=== PATIENT | female | born 1955 | race Caucasian/White ===

== ENCOUNTER → 2017-03-29 | Outpatient (CLI) | payer BC, SELFPAY ==
--- NOTE | 2017-03-30 03:02 | RAD ---
Procedure: XR PELVIS 1-2 VIEWS Exam Date: 03/29/2017 Ordering Provider: SARAH KEN Clinical Indication: HIP pain Comparison: None FINDINGS: There is no fracture or dislocation. Articular surface of each hip is preserved. The sacroiliac joints have a normal appearance bilaterally. The pubic symphysis is normal. There are no lytic or sclerotic lesions. There are no suspicious calcifications. Impression: 1. Negative exam of the pelvis and each hip. Electronically signed by: Alden Savage MD 03/30/2017 3:02 AM CDT
--- NOTE | 2017-03-30 03:05 | RAD ---
Procedure: XR HIP 2 OR MORE VIEWS Exam Date: 03/29/2017 Ordering Provider: SARAH KEN Clinical Indication: HIP pain Comparison: None FINDINGS: There is no fracture or dislocation. Articular surface of the right hip is preserved. Visualized portions of the right hemipelvis are normal. There is no lytic or sclerotic lesion. No suspicious calcifications. Impression: 1. Negative exam of the right hip. Electronically signed by: Alden Savage MD 03/30/2017 3:04 AM CDT
== END | disposition home or self-care (01) ==
LOC: LAB.O 13:37
PROVIDERS: ATTEND Orthopaedic Surgery
DX: M25.551 Pain in right hip (principal)

== ENCOUNTER → 2017-04-01 | Outpatient (CLI) | payer BC ==
--- NOTE | 2017-04-01 16:22 | MAM ---
History: Well woman exam. Date of exam: 04/01/2017 Services provided: Bilateral full field digital screening mammography. CAD, the images were reviewed with R2 computer aided detection. FINDINGS: Glandular tissue is scattered glandular contour with increased mammographic density. Comparison with 2012 exam. No dominant mass, architectural distortion or clustered microcalcification. IMPRESSION: Benign exam Recommendation: Routine annual mammography BIRAD CATEGORY: 2 BENIGN Electronically signed by: Vijaya Trinidad MD 04/01/2017 4:22 PM CDT Workstation: [id number]
== END | disposition home or self-care (01) ==
LOC: MAMMO 07:35
PROVIDERS: ATTEND Family Medicine
DX: Z12.31 Encounter for screening mammogram for malignant neoplasm of breast (principal)

== ENCOUNTER → 2018-11-24 | Outpatient (CLI) | payer BC ==
--- NOTE | 2018-11-24 09:56 | CT ---
EXAM DESCRIPTION: Abdomen/Pelvis w/wo Contrast: Computed Tomography. CLINICAL HISTORY: GROSS HEMATURIA COMPARISON: None. TECHNIQUE: Spiral-axial scans at 5 x 5 mm intervals through the abdomen and pelvis before and after standard dose nonionic IV contrast. No oral contrast. Coronal and sagittal 2.0 mm reconstructions. 5 mm Delayed helical-axial scans, liver through the pubic symphysis. No adverse reactions. Total Exam DLP 1883.19 mGy - cm. This exam was performed according to our departmental CT dose-optimization program which includes automated exposure control, adjustment of the mA and/or kV according to patient size and/or use of iterative reconstruction technique; to reduce radiation dose to as low as reasonably achievable (ALARA). FINDINGS: Kidneys and Ureters: In the upper right kidney there is a lobulated mass with partially circumscribed margins involving the collecting system of the mid kidney and extending superiorly along the medial border and mass effect on the renal pelvis, displacing it posteriorly. Collecting system also displaced posterior to the mass.. Inhomogeneous enhancement. No calcification with dimensions 3.3 x 3.6 cm in axial plane and 3.4 cm craniocaudal. No fatty stranding or perinephric fluid. No hydronephrosis or radiodense stones in the kidney. Entire right ureter contains IV contrast and normal caliber. No filling defects in the right renal vein. Normal size left kidney with no definite mass, stones, or abnormal enhancement or perinephric fluid or hydronephrosis. Contrast in the proximal two thirds of the left ureter normal caliber.. Pelvic Organs: No free fluid. Vaginal cuff negative. Ovaries not well seen. Small calcifications. Lung bases and pleura: Negative. Liver, Stomach, Spleen, Adrenal Glands: Small nonenhancing region on the lateral tip of the lateral segment of the left hepatic lobe seen on the immediate postcontrast images not as well seen on the delayed contrast images. Approximately 1.5 cm greatest diameter. Hounsfield density +61 to +73. Liver otherwise unremarkable. Stomach duodenum and remaining solid organs are negative. Pancreas, Gallbladder, Ducts: Gallbladder visualized. No ascites. Pancreas unremarkable. Duct upper normal limits in caliber. Mesentery: No free air or fluid. No fatty stranding or fascial thickening. Aorta: Minimal tortuosity. Small calcification at the ostia of the left renal artery. Small lymph nodes between the aorta and IVC and lateral left aorta. Small Bowel: Intermittent gas and fluid with minimal distention distally. No significant air-fluid levels. Terminal Ileum/Cecum: Minimal distention with fluid in the TI. Mild distention of the cecum by fecal matter. Normal caliber of the appendix. Normal density of the surrounding fat. Colon: Moderate amount of fecal material throughout the colon, predominantly ascending, transverse, and descending. No air-fluid levels. Spine and Bony Pelvis: Spondylosis L5-S1 predominantly midline into the left of midline. Subchondral cyst anterior right acetabular facet. Minimal lumbar levoscoliosis. Abdominal Wall/Back Soft Tissues: Negative. IMPRESSION: 1. 4 x 3 cm mass mid and upper right kidney with inhomogeneous enhancement, and mass effect on the collecting system and right renal pelvis. Most likely renal cell carcinoma. No hydronephrosis perinephric fluid, fatty stranding or satellite lesions around the kidney. No filling defect in the right renal vein. No enlarged perirenal or periaortic veins. 2. Focal area of decreased contrast enhancement the lateral tip of the lateral segment left hepatic lobe. This can be normal finding, or hemangioma. Metastatic lesion should also be consideration. Included lung bases are unremarkable. 3. Moderate amount of fecal material throughout the colon. Slight distention of the terminal ileum by fluid. No mass identified in the peritoneum or retroperitoneum with no ascites or fluid in the cul-de-sac. Urinary bladder wall appears uniform but only minimal contrast in the bladder. CRITICAL COMMUNICATION: The critical value was discussed directly by phone with Dr. Earnest Magallanes at approximately 950 hours, on November 24, 2018. Electronically signed by: Viktor Roach MD 11/24/2018 9:54 AM BAG CHECKER
== END ==
LOC: CT 07:52
PROVIDERS: ATTEND Family Medicine
DX: R31.0 Gross hematuria (principal); N28.89 Other specified disorders of kidney and ureter

== ENCOUNTER → 2018-11-25 | Outpatient (CLI) | payer BC ==
--- NOTE | 2018-11-25 18:31 | CT ---
EXAM DESCRIPTION: Chest w/Contrast : Computed Tomography. CLINICAL HISTORY: 63 years Female RENAL MASS right kidney. COMPARISON: CT scan of abdomen and pelvis without and with IV contrast, 11/24/2018. TECHNIQUE: Spiral-axial scans at 5 x 5 mm intervals through the lungs and thorax without IV contrast. 2.5 x 5 mm lung algorithm axial reconstructions. Coronal and sagittal 2.0 Mm reconstructions. No adverse reactions. Total Exam DLP: 265.84 mGy-cm. This exam was performed according to our departmental dose-optimization program which includes automated exposure control, adjustment of the mA and/or kV according to patient size and/or use of iterative reconstruction technique; to reduce radiation dose to as low as reasonably achievable (ALARA). Nodule measurements under 10 mm are given as mean value of 3 axes diameters. FINDINGS: Lungs and large airways: Small bilateral blebs more prevalent in the upper lung henriquez than the lower lung henriquez. No abnormal nodules or masses. No focal infiltrates. Pleural spaces: No effusion calcification or pneumothorax. Mediastinum and Stacey: No enlarged soft tissue masses or abnormal lymph nodes. Great vessels and Heart: Minimal atherosclerotic calcification in the aortic arch. Soft tissues of neck base, axillae, and chest wall: Small axillary lymph nodes. Symmetric appearance of the thyroid gland. Otherwise negative. Upper abdomen: See report from CT scan abdomen and pelvis on 11/24/2018. Osseous structures: Early spondylosis in the thoracic spine. IMPRESSION: Minimal emphysematous changes in the upper lung henriquez bilaterally. No abnormal nodules masses or focal infiltrates. No pleural effusion or pneumothorax. No abnormal appearing lymph nodes in the mediastinum and stacey or chest wall. No soft tissue masses. No blastic or lytic bone lesions. Electronically signed by: Viktor Roach MD 11/25/2018 6:30 PM SERVICE ORDER DISPATCHER CHIEF
== END ==
LOC: CT 10:07
PROVIDERS: ATTEND Family Medicine
DX: C64.9 Malignant neoplasm of unspecified kidney, except renal pelvis (principal)

== ENCOUNTER → 2019-04-17 | Outpatient (CLI) | payer BC ==
--- NOTE | 2019-04-17 15:12 | RAD ---
EXAM DESCRIPTION: Chest,2 Views CLINICAL HISTORY: Malignant neoplasm of unsp kidney, except renal pelvis COMPARISON: None TECHNIQUE: PA/lateral FINDINGS: There is no acute appearing cardiac or pulmonary abnormality. Heart size is normal with normal pulmonary vascularity. No pleural effusion or pneumothorax. Minimal linear scarring in the lingula. Lungs are otherwise clear with no consolidating infiltrate. Lateral view shows intact sternum and T-spine. Lungs appear hyperexpanded on lateral view. IMPRESSION: No acute process is identified in the chest. Electronically signed by: Jerrell Whiting MD 04/17/2019 3:10 PM CDT
--- NOTE | 2019-04-20 11:47 | CT ---
EXAM DESCRIPTION: Abdomen/Pelvis w/o Contrast: Computed Tomography. CLINICAL HISTORY: 63 years Female Malignant neoplasm of unspecified kidney, except renal pelvis. Right nephrectomy. COMPARISON: Abdomen pelvis with and without contrast, prior to nephrectomy, 11/24/2018. TECHNIQUE: Spiral-axial scans 2.5 x 2.5 mm intervals through the abdomen and pelvis without oral or IV contrast. Coronal and sagittal 2.0 mm reconstructions. Total Exam DLP: 596.79 mGy-cm. This exam was performed according to our departmental CT dose-optimization program which includes automated exposure control, adjustment of the mA and/or kV according to patient size and/or use of iterative reconstruction technique; to reduce radiation dose to as low as reasonably achievable (ALARA). FINDINGS: Lung bases and pleura: Minimal pleural-parenchymal scarring in the bases. Tiny coronary artery calcifications. Liver, stomach, spleen, and adrenal glands: Stomach distended by fluid and fluid. Liver normal density and not enlarged. Spleen and left adrenal gland negative. Left adrenal gland enlargement since the prior study now measuring 1.6 x 1.3 x 0.9 cm. Hounsfield density is +17 - +22, but no calcification.. Pancreas, Gallbladder, and Ducts: Small gallbladder. Common bile duct dilated. Pancreas normal density. Kidneys and Ureters: Right kidney surgically absent with surgical clips in the right renal fossa. Soft tissue density measuring approximately1.3 x 1.2 x 0.8 cm in the right renal fossa posterior to the colon and abutting the lateral right psoas muscle on axial series 2, images 53-57. Margins are minimally indistinct. No stranding fluid or fascial thickening abutting this mass. Left kidney and ureter are unremarkable. Mesentery: Small lymph nodes scattered throughout the mesentery. No free fluid or free air. Periportal lymph nodes small. Aorta: Minimal atherosclerotic calcifications and ectasia of the proximal right common iliac artery. No enlarged periaortic nodes. Small Bowel: Negative. Terminal Ileum/Cecum: Unremarkable. Mostly gas. Normal caliber of the appendix. Normal density of the surrounding fat. Small lymph nodes.. Colon: Minimal redundancy of the sigmoid colon. Mildly distended throughout by fecal material and gas. Pelvic Organs: Urinary bladder distended with no wall thickening or radiodense stones. Vaginal cuff unremarkable. Ovaries are not seen. No free fluid. Spine and Bony Pelvis: Spondylosis L5-S1 with posterior disc bulge. Subchondral cyst right acetabulum. Minimal arthrosis bilaterally. Abdominal Wall/Back Soft Tissues: Bilateral diastases in the inguinal canals but no chet hernia and no bowel in the canals. IMPRESSION: 1. 1.2 x 1.3 cm soft tissue object or mass in the left renal fossa with minimally indistinct margins abutting the lateral right psoas muscle and the posterior wall of the ascending colon. No calcifications. No fluid. This could represent postsurgical scarring versus local recurrent tumor. 1.6 x 1.3 cm mass in the left adrenal gland, new since November. New adrenal gland lesion or metastasis. Multiple small nodes in the mesentery, and periportal region small nodes. Consider MRI scan abdomen without and with gadolinium IV contrast, triple phase abdominal pelvic CT scan without and with IV contrast, and or PET scan. CRITICAL COMMUNICATION: The critical value was discussed directly by phone with Dr. Vicente Hartley at approximately 1046 hours, on 04/20/2019. Electronically signed by: Viktor Roach MD 04/20/2019 11:45 AM CDT
== END ==
LOC: CT 13:52
PROVIDERS: ATTEND Urology
DX: C64.9 Malignant neoplasm of unspecified kidney, except renal pelvis (principal); E27.8 Other specified disorders of adrenal gland

== ENCOUNTER → 2019-09-14 | Outpatient (CLI) | payer BC ==
--- NOTE | 2019-09-14 09:10 | CT ---
EXAM DESCRIPTION: CT ABDOMEN WITHOUT CONTRAST CLINICAL HISTORY: C64.1. History of right renal neoplasm and nephrectomy. COMPARISON: CT abdomen and pelvis 04/17/2019, 11/24/2018. TECHNIQUE: CT of the abdomen is performed during without IV or oral contrast. Multiplanar reconstructions were obtained. FINDINGS: Partially limited evaluation without intravenous contrast. The lung bases are clear. Postsurgical changes relating to right nephrectomy. Previously noted right soft tissue lesion along the inferior aspect of the right renal fossa (imaging the right psoas muscle and posterior wall of the descending colon) appears to be decreased in size now measuring approximately 0.9 x 0.4 cm, previously 1.3 x 1.2 cm, most consistent with decreasing postsurgical changes, mild scarring. Soft tissue thickening involving the right adrenal fossa measuring 1.4 cm, previously 1.6 cm also appears to be stable to decreased in size. No suspicious lymphadenopathy. Liver is normal in size and parenchymal appearance. Spleen, pancreas, and left kidney is unremarkable. No suspicious osseous lesion IMPRESSION: Partially limited evaluation without intravenous contrast. 1. Postsurgical changes relating to right nephrectomy. Previously noted soft tissue lesion along the inferior aspect of the right renal fossa appears to be slightly decreased in size and is most consistent with postsurgical changes and mild scarring. 2. Previously noted soft tissue thickening within the right adrenal fossa is also stable to slightly decreased in size compared to prior examination dated 04/17/2019. This exam was performed according to our departmental dose-optimization program, which includes automated exposure control, adjustment of the mA and/or kV according to patient size and/or use of iterative reconstruction technique. Electronically signed by: Woody Ortega DO 09/14/2019 9:08 AM RUST
== END ==
LOC: CT 07:54
PROVIDERS: ATTEND Urology
DX: C64.1 Malignant neoplasm of right kidney, except renal pelvis (principal); M79.9 Soft tissue disorder, unspecified; Z98.890 Other specified postprocedural states; Z90.5 Acquired absence of kidney

== ENCOUNTER → 2019-12-02 | Outpatient (CLI) | payer BC ==
--- NOTE | 2019-12-03 16:37 | MAM ---
EXAM DESCRIPTION: 3D Screening BILATERAL : Digital Mammography. CLINICAL HISTORY: 64 years Female screening . No complaints. No personal or family history of breast cancer. Menarche age 15. No childbirth. Hysterectomy age 47. HRT less than 5 years ago.. Lifetime risk of developing breast cancer (Tyrer-Cuzick model)(%): 7.7. COMPARISON: Bilateral screening digital breast tomosynthesis June 2018 and 2-D digital screening bilateral mammography March 2017. TECHNIQUE: Bilateral CC and MLO projection full-field images, digital tomosynthesis mammographic technique. Bilateral digital 2-D full-field MLO images. and CC images. CAD available for 2-D images. FINDINGS: The breast parenchymal density pattern is: Heterogeneously dense breast tissue, which may obscure small masses. No skin thickening or nipple retraction. Bilateral solitary parenchymal microcalcifications. No new focal, stellate mass or density, focal asymmetry , and no suspicious microcalcifications bilaterally. Stable mammograms compared to prior study. IMPRESSION: Benign exam. BIRAD CATEGORY: 2 BENIGN FINDINGS. RECOMMENDATIONS: FOLLOW UP: Routine digital bilateral mammographic screening, one year interval from November 2019. Written communication explaining the IMPRESSION and follow-up, will be mailed to the patient and referring health care provider. According to the [employer], yearly mammograms are recommended starting at age 40 and continuing as long as a woman is in good health. Any breast change noted on a breast self-exam should be reported promptly to the patient's healthcare provider. Breast MRI is recommended for women with an approximately 20-25% or greater lifetime risk of breast cancer, including women with a strong family history of breast or ovarian cancer and women who have been treated for Hodgkin's disease. A negative mammographic report should not delay tissue diagnosis in patients with significant clinical history or physical findings. Extremely dense breast tissue limits the sensitivity of digital mammography. Electronically signed by: Viktor Roach MD 12/03/2019 4:35 PM DIGITAL ASSET COORDINATOR
== END ==
LOC: MAMMO 14:30
PROVIDERS: ATTEND Family Medicine
DX: Z12.31 Encounter for screening mammogram for malignant neoplasm of breast (principal)

== ENCOUNTER → 2020-03-22 | Outpatient (CLI) | payer BC ==
--- NOTE | 2020-03-22 10:18 | CT ---
EXAM DESCRIPTION: Abdomen/Pelvis w/Contrast: Computed Tomography. CLINICAL HISTORY: 64 years Female NEOPLASM OF LEFT KIDNEY COMPARISON: CT scan of the abdomen and pelvis without contrast September 2019. TECHNIQUE: Spiral-axial scans at 5 x 5mm intervals through the abdomen and pelvis, after nonionic IV contrast without oral contrast. Coronal and sagittal 2.0 mm reconstructions. No adverse reactions. Total Exam DLP: 616 mGy-cm. This exam was performed according to our departmental dose-optimization program which includes automated exposure control, adjustment of the mA and/or kV according to patient size and/or use of iterative reconstruction technique; to reduce radiation dose to as low as reasonably achievable (ALARA). FINDINGS: Lung bases and pleura: 2 mm nodule abutting the posterior right hemidiaphragm and pleura on Axial series 2, image 10 stable since the prior study. Liver, Stomach, Spleen, Adrenal Glands: Stomach minimally distended by fluid. Minimal distention of the duodenum by fluid with no air-fluid levels. Nodular density in the right adrenal gland fossa stable compared to the prior study. Left adrenal gland and spleen stable. Pancreas, Gallbladder, Ducts: Gallbladder contracted. Minimal dilation of the common bile duct. Pancreas negative. Kidneys and Ureters: Prior right nephrectomy with surgical clips in the right renal and right adrenal fossa. Small nodular densities in the inferior fossa abutting the colon, duodenum, and right psoas muscle are stable. No abnormal fluid. Left kidney unremarkable with normal enhancement. Ureters negative. Mesentery: No free fluid or free air. No inflammatory changes. Aorta: Minimal atherosclerotic changes. Small Bowel: Mild distention proximal jejunum with fluid. Normal caliber of the remainder segments. Terminal Ileum/Cecum: Normal caliber including the appendix with no inflammatory changes. Colon: Fecal matter and gas throughout with mild distention and redundancy of the splenic flexure. Redundancy of the sigmoid colon. Normal caliber distally. Pelvic Organs: Prior hysterectomy. No complications. Ovaries not seen. Moderate distention of urinary bladder without radiodense calcifications or stones. Spine and Bony Pelvis: Lumbar levoscoliosis. Spondylosis and disc desiccation L5-S1 with significant canal and left foraminal narrowing. Subchondral bony changes right acetabulum, stable. Abdominal Wall/Back Soft Tissues: Negative. IMPRESSION: 1. Previous right nephrectomy for malignancy. Small peritoneal and retroperitoneal nodular densities in the vicinity of the right renal fossa are stable. No abnormal enhancement. 2. No free fluid or free air or inflammatory changes in the abdomen or pelvis. Stable right pleural/hemidiaphragmatic 2 mm nodule. Stable mild dilation common bile duct. Constipation proximal and mid colon. Electronically signed by: Viktor Roach MD 03/22/2020 10:17 AM CDT
--- NOTE | 2020-03-22 10:21 | RAD ---
EXAM DESCRIPTION: Chest,2 Views: CR/ CLINICAL HISTORY: 64 years Female NEOPLASM OF KIDNEY COMPARISON: 2 view chest x-ray April 2019. TECHNIQUE: Two views. PA and Lateral. FINDINGS: Lungs: Minimal overexpansion but stable. Bilateral parenchymal densities are also unchanged with no acute infiltrate. Pleural spaces: No effusion or pneumothorax bilaterally. Heart: Normal size. Pulmonary Vascularity: Not increased. Mediastinum: Not widened. Aorta: Minimal atherosclerotic changes. Bony Thorax/Spine: No acute bony thoracic abnormalities. Disc space narrowing at several levels. IMPRESSION: Early senescent changes. No acute cardiopulmonary process. Stable since the prior study. Electronically signed by: Viktor Roach MD 03/22/2020 10:20 AM CDT
== END ==
LOC: CT 08:00
PROVIDERS: ATTEND Urology
DX: C64.1 Malignant neoplasm of right kidney, except renal pelvis (principal)

== ENCOUNTER → 2020-11-21 | Outpatient (CLI) | payer BC | LOC: GMAE 11:46 | PROVIDERS: ATTEND Family Medicine | DX: Z13.29 Encounter for screening for other suspected endocrine disorder (principal); E78.2 Mixed hyperlipidemia ==